=== PATIENT | male | born 1990 | race Caucasian/White ===

== ENCOUNTER 2022-04-14 15:37 | Outpatient (CLI) | payer OTHER | END 2022-04-14 15:38 | disposition critical access hospital (66) | LOC: EMS 15:37 | DX: S81.811A Laceration without foreign body, right lower leg, initial encounter (principal); W27.0XXA Contact with workbench tool, initial encounter; Y93.H9 Activity, other involving exterior property and land maintenance, building and construction; Y92.007 Garden or yard of unspecified non-institutional (private) residence as the place of occurrence of the external cause | CPT/HCPCS: A0425; A0429 ==

== ENCOUNTER 2022-04-14 16:06 | Emergency (ER) | payer OTHER ==
--- NOTE | 2022-04-14 17:08 | XRAY Report ---
PROCEDURE: Tib/Fib RT INDICATIONS: axe injury to bailey TECHNIQUE: 2 views of the tibia and fibula were acquired. COMPARISON: None FINDINGS: Bones: No fractures or dislocations. No suspicious bony lesions. Soft tissues: No suspicious soft tissue calcifications or masses. Soft tissue laceration noted in t he upper thigh IMPRESSION: Soft tissue laceration without fracture or foreign body Reviewed by: Umang Mendez MD on 04/14/2022 4:07 PM [place] Approved by: Umang Mendez MD on 04/14/2022 4:07 PM AKST Station ID: [id number]
[2022-04-14] MEDS ORDERED: IBUPROFEN 600 MG TABLET PO STA (17:16)
--- NOTE | 2022-04-14 17:16 | ED Physician Documentation ---
PD HPI LOWER EXT INJURY - Stated complaint Stated Complaint: RT LEG WOUND - Chief complaint Chief Complaint: Trauma Ext - History obtained from History obtained from: Patient, EMS - History of Present Illness PD HPI LOW EXT INJURY LOCATION: Right, Lower leg (anterior mid lower leg just medial to tibial bone with vertical 7 cm lac to fatty tissue from axe swung to chop a branch on fencing. Axe went through branch easily and the weight of the axe continued downward causing the lac on lower leg.) Type of injury: Laceration Where injury occurred: Home Timing - onset: Today Timing - details: Abrupt onset, Still present Improved by: Dressing (snug dressing led to decreased bleeding.) Associated symptoms: No: Weakness, Numbness Contributing factors: No: Anticoagulated Similar symptoms before: Has not had sx before Recently seen: Not recently seen Review of Systems Constitutional: denies: Fever Nose: denies: Rhinorrhea / runny nose, Congestion Throat: denies: Sore throat Respiratory: denies: Cough Neurologic: denies: Focal weakness, Numbness, Near syncope PD PAST MEDICAL HISTORY - Past Medical History Cardiovascular: None Respiratory: None Musculoskeletal: None PD ED PE NORMAL - Vitals Vital signs reviewed: Yes - General General: Alert and oriented X 3, Well developed/nourished - Derm Derm: Normal color, Warm and dry - Extremities Extremities: Other (right anterior lower leg with 7 cm laceration just medial to mid tibial bone, extending to fatty tissue layer and exposing the muscle without muscle injury. Lac is slightly angled so partial flap. Mild bleeding. No FB. ) - Neuro Neuro: Alert and oriented X 3, No motor deficit (has good motion of foot and ankle for dorsiflexion and eversion without pain in lower leg. ), No sensory deficit, Normal speech Results - Vitals Vitals: Vital Signs - 24 hr 04/14/22 04/14/22 16:22 17:48 Heart Rate 82 78 Respiratory 16 20 Rate Blood Pressure 131/85 H 125/78 O2 Saturation 100 98 Oxygen O2 Source Room air - Rads (name of study) right tib/fib Radiology: Prelim report reviewed (no fractures. no fbs. ), See rad report Procedures - Laceration (location) right lower leg Length in cm: 7 Wound type: Linear, Into subcut fat Neurovascular status: Sensory intact, Motor intact, Vascular intact Anesthesia: Lidocaine 1% with epi Wound preparation: Irrigated copiously NS, Wound explored, To the base Deep layer closure: Vicryl, size #-0 - enter number (4), # sutures - enter number (10) Skin layer closure: Nylon, Running, Size #-0 - enter number (4), Sutures - enter # (27) Other: Patient tolerated well, No complications, Neurovascular intact, Dressing applied, Tetanus UTD PD MEDICAL DECISION MAKING - ED course Complexity details: reviewed results, considered differential, d/w patient Departure - Departure Disposition: 01 Home, Self Care Clinical Impression: Laceration of lower leg Qualifiers: Encounter type: initial encounter Laterality: right Qualified Code(s): S81.811A - Laceration without foreign body, right lower leg, initial encounter Contact with hand tool Qualifiers: Encounter type: initial encounter Qualified Code(s): W27.8XXA - Contact with other nonpowered hand tool, initial encounter Condition: Stable Record reviewed to determine appropriate education?: Yes Instructions: ED Laceration Ext Sutr Stap Tape Follow-Up: ERICH Frye [Provider Group] Comments: It is okay to wash and shower. Clean off the wound twice a day with soap and water, or peroxide and water. Apply some antibiotic ointment to it to keep it moist. Also to watch for signs of infection such as purulence, redness or increasing pain. Return to your primary care or the ER at the specified time for suture removal. Suture removal approximately 10 days. Forms: Activity restrictions Discharge Date/Time: 04/14/22 18:03
[2022-04-14 17:48] VITALS: BP 125/78
== END 2022-04-14 18:03 | disposition home or self-care (01) ==
LOC: ED 16:06
DX: S81.811A Laceration without foreign body, right lower leg, initial encounter (principal); W27.0XXA Contact with workbench tool, initial encounter; Y93.89 Activity, other specified; Y92.009 Unspecified place in unspecified non-institutional (private) residence as the place of occurrence of the external cause
CPT/HCPCS: 12032; 73590; 99283; A9270; 12002

== ENCOUNTER 2023-12-24 12:46 | Emergency (ER) | payer OTHER ==
[2023-12-24 13:22] VITALS: O2SAT 100
[2023-12-24 13:43] LABS: BASOPHILS # (AUTO) 0.1 10^3/uL (0.0-0.1); BASOPHILS % (AUTO) 0.8 %; EOSINOPHILS # (AUTO) 0.2 10^3/uL (0.0-0.7); EOSINOPHILS % (AUTO) 3.2 %; HCT - HEMATOCRIT 43.8 % (42.0-52.0); HGB - HEMOGLOBIN 14.8 g/dL (14.0-18.0); LYMPHOCYTES # (AUTO) 2.1 10^3/uL (1.5-3.5); LYMPHOCYTES % (AUTO) 31.7 %; MEAN CORPUSCULAR HEMOGLOBIN 30.5 pg (27.0-31.0); MEAN CORPUSCULAR HGB CONC 33.8 g/dL (32.0-36.0); MEAN CORPUSCULAR VOLUME 90.3 fL (80.0-94.0); MEAN PLATELET VOLUME 10.6 fL (7.4-11.4); MONOCYTES # (AUTO) 0.8 10^3/uL (0.0-1.0); MONOCYTES % (AUTO) 12.1 %; NEUTROPHILS # (AUTO) 3.4 10^3/uL (1.5-6.6); NEUTROPHILS % (AUTO) 51.9 %; PLT - PLATELET COUNT 245 10^3/uL (130-450); RED BLOOD COUNT 4.85 10^6/uL (4.70-6.10); RED CELL DISTRIBUTION WIDTH 12.1 % (12.0-15.0); WHITE BLOOD COUNT 6.6 x10^3/uL (4.8-10.8)
[2023-12-24 14:02] LABS: ALBUMIN 4.9 g/dL (3.2-5.5); BILIRUBIN,TOTAL 0.6 mg/dL (0.2-1.0); CALCIUM 9.5 mg/dL (8.5-10.3); CREATININE 0.9 mg/dL (0.6-1.3); POTASSIUM 3.6 mmol/L (3.5-4.5); TOTAL PROTEIN 7.3 g/dL (6.4-8.9)
--- NOTE | 2023-12-24 14:45 | ED Physician Documentation ---
History of Present Illness - Stated complaint Stated Complaint: GI - Chief complaint Chief Complaint: Abd Pain - History obtained from History obtained from: Patient - Treatment prior to arrival Treatment prior to arrival: Patient is a 33-year-old male presenting to the emergency department with abdominal pain that has been going on for months he describes it in left upper quadrant and right lower quadrant. He notes symptoms have Been going on for multiple months he was seeing his PCP for similar symptoms however pain has progressively worsened. He is scheduled for a CT scan of his abdomen in [facility] but given severity of his pain he feels he cannot wait. He denies any nausea or vomiting today but notes occasional projectile yellowly bilious vomiting. No hematemesis. He notes intermittent constipation and diarrhea but no blood in his stools. He notes his stools are usually darker though. He denies any dizziness or lightheadedness no chest pain or shortness of breath associated with his symptoms. No history of abdominal surgeries. PD PAST MEDICAL HISTORY - Past Medical History Past Medical History: Yes Cardiovascular: High cholesterol Respiratory: None Psych: ADD/ADHD, Other Musculoskeletal: None - Past Surgical History Past Surgical History: No - Present Medications Home Medications: Ambulatory Orders Medication Instructions Recorded Confirmed Dextroamphetamine/Amphetamine 20 mg PO DAILY 12/24/23 12/24/23 [Adderall 20 mg Tablet] Dicyclomine HCl 20 mg PO DAILY 12/24/23 12/24/23 Ezetimibe [Zetia] 10 mg PO DAILY 12/24/23 12/24/23 Hyoscyamine [Levsin] 0.125 mg SL AC #10 tablet 12/24/23 Sertraline [Zoloft] 75 mg PO DAILY 12/24/23 12/24/23 - Allergies Allergies/Adverse Reactions: Allergies Allergy/AdvReac Type Severity Reaction Status Date / Time No Known Drug Allergies Allergy Verified 12/24/23 13:19 - Social History Does the pt smoke?: No Smoking Status: Never smoker Does the pt drink ETOH?: No Does the pt have substance abuse?: No - Immunizations Immunizations are current?: Yes - POLST Patient has POLST: No Results - Vitals Vitals: Vital Signs - 24 hr 12/24/23 12/24/23 13:09 15:09 Temperature 37.2 C Heart Rate 93 71 Respiratory 19 19 Rate Blood Pressure 131/70 H 117/70 O2 Saturation 100 100 Oxygen O2 Source Room air - Labs Labs: Laboratory Tests 12/24/23 12/24/23 12/24/23 13:39 13:39 14:53 WBC 6.6 RBC 4.85 Hgb 14.8 Hct 43.8 MCV 90.3 MCH 30.5 MCHC 33.8 RDW 12.1 Plt Count 245 MPV 10.6 Neut # (Auto) 3.4 Lymph # (Auto) 2.1 [place] # (Auto) 0.8 Eos # (Auto) 0.2 Baso # (Auto) 0.1 Absolute Nucleated RBC 0.00 Nucleated RBC % 0.0 Sodium 138 Potassium 3.6 Chloride 104 Carbon Dioxide 30 Anion Gap 4.0 L BUN 12 Creatinine 0.9 Estimated GFR (MDRD) 97 Glucose 82 Calcium 9.5 Total Bilirubin 0.6 AST 14 ALT 16 Alkaline Phosphatase 90 Total Protein 7.3 Albumin 4.9 Globulin 2.4 Albumin/Globulin Ratio 2.0 Lipase 29 Urine Color YELLOW Urine Clarity CLEAR Urine pH 8.5 H Ur Specific [place] 1.015 Urine Protein NEGATIVE Urine Glucose (UA) NEGATIVE Urine Ketones NEGATIVE Urine Occult Blood NEGATIVE Urine Nitrite NEGATIVE Urine Bilirubin NEGATIVE Urine Urobilinogen 0.2 (NORMAL) Ur Leukocyte Esterase NEGATIVE Ur Microscopic Review NOT INDICATED Urine Culture Comments NOT INDICATED PD Medical Decision Making - ED course Complexity details: reviewed old records, reviewed results, re-evaluated patient, d/w patient ED course: Patient is a 33-year-old male presented to the emergency department with abdominal pain and left upper quadrant right lower quadrant symptoms have been going on for months progressively worsening patient has a CT scan scheduled in January by his PCP to further evaluate his symptoms but he feels symptoms are too severe. He denies any vomiting today but has been having occasional vomiting intermittent constipation versus diarrhea and abdominal cramping he takes Bentyl at home for his symptoms without relief. Vitals are stable on arri bina physical exam shows reproducible left upper quadrant pain right lower quadrant pain no rebound no Rovsing sign. Active bowel sounds on auscultation of the abdomen. Labs obtained here in the emergency department reassuring lipase is negative CBC shows no leukocytosis and hemoglobin is stable. UA shows no signs of UTI. Discussed with patient reassuring results however he is concerned with his persistent symptoms. CT scan obtained of abdomen for further evaluation showing no acute intra- abdominal findings. Patient updated on reassuring findings he feels he is safe to go home will start patient on Levsin to see if these will help with his symptoms he is already on Bentyl. Discussed with patient symptoms could be secondary to IBS. Discussed with patient return precautions including abdominal pain that worsens fevers nausea vomiting that is uncontrollable dizziness or lightheadedness. He is agreeable with this plan. Departure - Departure Disposition: Home, Self Care Clinical Impression: Abdominal pain, Generalized abdominal cramping, Irritable bowel syndrome Condition: Good Prescriptions: Hyoscyamine [Levsin] 0.125 mg SL AC #10 tablet Comments: You need to follow-up with your PCP in the outpatient setting return to the emergency department with any worsening pain nausea vomiting fevers abdominal cramping or any other new or worsening symptoms. Forms: PCP List
[2023-12-24 15:00] LABS: BILIRUBIN,URINE NEGATIVE (NEGATIVE); GLUCOSE, URINE (UA) NEGATIVE (NEGATIVE); KETONES,URINE (UA) NEGATIVE (NEGATIVE); LEUKOCYTE ESTERASE, URINE NEGATIVE (NEGATIVE); NITRITE,URINE NEGATIVE (NEGATIVE); OCCULT BLOOD,URINE NEGATIVE (NEGATIVE); PH,URINE 8.5 PH (5.0-7.5); PROTEIN,URINE NEGATIVE (NEGATIVE); UROBILINOGEN,URINE 0.2 (NORMAL) E.U./dL (NORMAL)
[2023-12-24 15:04] LABS: CLARITY,URINE CLEAR (CLEAR)
[2023-12-24] MEDS: iohexoL-300 100 ML VIAL IVP ONE (15:14)
--- NOTE | 2023-12-24 15:52 | CT Report ---
PROCEDURE: Abdomen/Pelvis W INDICATIONS: epigastric pain, concern for cholecystitis, vs todd CONTRAST: 100ml [id number]. TECHNIQUE: After the administration of intravenous contrast, a CT scan of the abdomen and pelvis was performed. Images were recorded and evaluated at appropriate window settings. Reformats: coronal and sagittal. F or radiation dose reduction, the following was used: automated exposure control, adjustment of mA and /or kV according to patient size. COMPARISON: None. FINDINGS: Image quality: Diagnostic. Lower chest: Unremarkable. Liver: No solid mass. Gallbladder: No radiopaque stones or wall thickening. Biliary tree: No intrahepatic or extrahepatic dilation, accounting for age. Spleen: No splenomegaly. Pancreas: No pancreatic ductal dilation. Adrenals: No adrenal nodule. Kidneys and ureters: No hydronephrosis. No renal cystic lesion which requires follow up. No solid mas s. Stomach, bowel and peritoneum: No gastric or small bowel dilation. No abnormal wall thickening. No pa thologic free fluid. Normal appendix. Lymph nodes: No central or retroperitoneal adenopathy. Vessels: No infrarenal aortic aneurysm. Patent portal vein. PELVIS Reproductive organs: Unremarkable. Bladder: No abnormal wall thickening, accounting for underdistention. Pelvic lymph nodes: No pelvic adenopathy by size criteria. Bones: No aggressive osseous abnormality. Other: No significant ventral or inguinal hernia. IMPRESSION: Normal CT. No CT evidence of acute cholecystitis or pancreatitis. Reviewed by: Nikolas Kemp MD on 12/24/2023 3:51 PM PDT Approved by: Nikolas Kemp MD on 12/24/2023 3:51 PM PDT Station ID: [id number]
[2023-12-24 17:28] VITALS: BP 116/75
== END 2023-12-24 17:14 | disposition home or self-care (01) ==
LOC: ED 12:46
DX: K58.9 Irritable bowel syndrome, unspecified (principal); E78.00 Pure hypercholesterolemia, unspecified
CPT/HCPCS: 36415; 80053; 81001; 81003; 83690; 85025; 87086; 99283; 99284

== ENCOUNTER 2023-12-30 13:49 | Emergency (ER) | payer OTHER ==
[2023-12-30 14:13] VITALS: O2SAT 100
--- NOTE | 2023-12-30 14:59 | ED Physician Documentation ---
PD HPI SKIN - Stated complaint Stated Complaint: RASH ALL OVER - Chief complaint Chief Complaint: Allergic Rx - History obtained from History obtained from: Patient - Additional information Additional information: The patient comes to the emergency department chief complaint of rash traveling from his bilateral thighs progressively now to his chest and upper back since yesterday. The patient denies any new products or exposure to anything that he can think of that might of caused this. PD PAST MEDICAL HISTORY - Past Medical History Past Medical History: Yes Cardiovascular: High cholesterol Respiratory: None Psych: ADD/ADHD, Other Musculoskeletal: None - Past Surgical History Past Surgical History: No - Present Medications Home Medications: Ambulatory Orders Medication Instructions Recorded Confirmed Dextroamphetamine/Amphetamine 20 mg PO DAILY 12/24/23 12/24/23 [Adderall 20 mg Tablet] Dicyclomine HCl 20 mg PO DAILY 12/24/23 12/24/23 Ezetimibe [Zetia] 10 mg PO DAILY 12/24/23 12/24/23 Hyoscyamine [Levsin] 0.125 mg SL AC #10 tablet 12/24/23 Sertraline [Zoloft] 75 mg PO DAILY 12/24/23 12/24/23 Famotidine [Pepcid] 20 mg PO BID #6 tablet 12/30/23 predniSONE [Deltasone] 60 mg PO DAILY 3 Days #9 tablet 12/30/23 - Allergies Allergies/Adverse Reactions: Allergies Allergy/AdvReac Type Severity Reaction Status Date / Time No Known Drug Allergies Allergy Verified 12/30/23 14:27 - Social History Does the pt smoke?: No Smoking Status: Never smoker Does the pt drink ETOH?: No Does the pt have substance abuse?: No - Immunizations Immunizations are current?: Yes - POLST Patient has POLST: No PD ED PE NORMAL - Vitals Vital signs reviewed: Yes - General General: Alert and oriented X 3, No acute distress, Well developed/nourished - HEENT HEENT: Atraumatic, PERRL, EOMI, Moist mucous membranes - Neck Neck: Supple, no meningeal sign - Cardiac Cardiac: RRR, No murmur - Respiratory Respiratory: No respiratory distress, Clear bilaterally - Abdomen Abdomen: Soft, Non tender, Non distended - Derm Derm: Warm and dry, Other (Urticarial rash involving mainly upper half of the trunk, upper arms, and neck. Coalesced urticaria noted. Some excoriations. Faint remnants of similar rash on bilateral legs.) - Extremities Extremities: No deformity - Neuro Neuro: Alert and oriented X 3 - Psych Psych: Normal mood, Normal affect Results - Vitals Vitals: Oxygen O2 Source Room air PD Medical Decision Making - ED course Complexity details: considered differential, d/w patient ED course: I discussed with the patient that I am not sure what has caused this reaction as the patient does not seem to be able to identify a specific trigger. I have discussed with him the use of Benadryl, steroid, and an H2 [place]. Patient has been given prescriptions as such. We have discussed the usual indications for return and follow-up. Departure - Departure Disposition: 01 Home, Self Care Clinical Impression: Allergic urticaria Condition: Stable Instructions: ED Allergic Reaction General Other Prescriptions: predniSONE [Deltasone] 60 mg PO DAILY 3 Days #9 tablet Famotidine [Pepcid] 20 mg PO BID #6 tablet Comments: Your rash appears to be an allergic reaction, though the source of this is unclear as rashes from allergic reactions all look the same, regardless of what you were exposed to. It is possible that you have become sensitized to something you were previously not allergic to, or it is possible you got exposed to something without realizing it. In general, allergic reactions go away on their own in 3 to 5 days, and most of the time, treatment is to help hasten the improvement of symptoms, but ultimately, your immune system has to calm down on its own for the reaction to go away completely. I sent a prescription for oral steroid and Pepcid to the [facility] pharmacy in [place] for your reaction. Forms: PCP List Discharge Date/Time: 12/30/23 15:19
[2023-12-30] MEDS: predniSONE 20 MG TABLET PO STA (15:09)
[2023-12-30 15:15] VITALS: BP 131/75
== END 2023-12-30 15:19 | disposition home or self-care (01) ==
LOC: ED 13:49
DX: E78.00 Pure hypercholesterolemia, unspecified (principal); L50.0 Allergic urticaria
CPT/HCPCS: 99283; J7512

== ENCOUNTER 2024-01-01 20:28 | Emergency (ER) | payer OTHER ==
[2024-01-01 21:39] LABS: BASOPHILS % (AUTO) 0.2 %; HCT - HEMATOCRIT 45.6 % (42.0-52.0); HGB - HEMOGLOBIN 15.1 g/dL (14.0-18.0); LYMPHOCYTES # (AUTO) 0.6 10^3/uL (1.5-3.5); LYMPHOCYTES % (AUTO) 5.9 %; MEAN CORPUSCULAR HEMOGLOBIN 30.1 pg (27.0-31.0); MEAN CORPUSCULAR HGB CONC 33.1 g/dL (32.0-36.0); MEAN CORPUSCULAR VOLUME 90.8 fL (80.0-94.0); MEAN PLATELET VOLUME 10.6 fL (7.4-11.4); MONOCYTES # (AUTO) 0.3 10^3/uL (0.0-1.0); MONOCYTES % (AUTO) 3.3 %; NEUTROPHILS # (AUTO) 8.5 10^3/uL (1.5-6.6); NEUTROPHILS % (AUTO) 90.2 %; PLT - PLATELET COUNT 275 10^3/uL (130-450); RED BLOOD COUNT 5.02 10^6/uL (4.70-6.10); RED CELL DISTRIBUTION WIDTH 12.6 % (12.0-15.0); WHITE BLOOD COUNT 9.5 x10^3/uL (4.8-10.8)
--- NOTE | 2024-01-01 21:39 | ED Physician Documentation ---
History of Present Illness - Stated complaint Stated Complaint: GI/HIVES - Chief complaint Chief Complaint: General - History obtained from History obtained from: Patient, Family () - Additonal information Additional information: 33-year-old man with history of ADHD, autism, depression, IBS, anxiety, presents with suicidal ideation for the past couple of days, worsening in severity and associated with self-injurious behavior. Patient has been complaining of rash for the past several days is scratching himself excessively per . He also states that he is having pervasive thoughts of killing himself and has a plan to do so but did not disclose what it was. Denies HI. Does endorse audio hallucinations (hearing his when she is not actually speaking). Denies visual hallucinations. PD PAST MEDICAL HISTORY - Past Medical History Past Medical History: Yes Cardiovascular: High cholesterol Respiratory: None Neuro: None Endocrine/Autoimmune: None GI: None : None HEENT: None Psych: ADD/ADHD, Other Musculoskeletal: None Derm: None - Past Surgical History Past Surgical History: No - Present Medications Home Medications: Ambulatory Orders Medication Instructions Recorded Confirmed Dextroamphetamine/Amphetamine 20 mg PO DAILY 12/24/23 01/01/24 [Adderall 20 mg Tablet] Dicyclomine HCl 20 mg PO DAILY 12/24/23 12/24/23 Ezetimibe [Zetia] 10 mg PO DAILY 12/24/23 01/01/24 Hyoscyamine [Levsin] 0.125 mg SL AC #10 tablet 12/24/23 Sertraline [Zoloft] 75 mg PO DAILY 12/24/23 01/01/24 Famotidine [Pepcid] 20 mg PO BID #6 tablet 12/30/23 01/01/24 predniSONE [Deltasone] 60 mg PO DAILY 3 Days #9 tablet 12/30/23 01/01/24 - Allergies Allergies/Adverse Reactions: Allergies Allergy/AdvReac Type Severity Reaction Status Date / Time No Known Drug Allergies Allergy Verified 01/01/24 21:25 - Social History Does the pt smoke?: No Smoking Status: Never smoker Does the pt drink ETOH?: No Does the pt have substance abuse?: No - Immunizations Immunizations are current?: Yes - POLST Patient has POLST: No PD ED PE NORMAL - Vitals Vital signs reviewed: Yes - General General: Alert and oriented X 3, No acute distress, Well developed/nourished, Other (Anxious appearing) - HEENT HEENT: Atraumatic, PERRL, EOMI, Moist mucous membranes, Pharynx benign - Neck Neck: Supple, no meningeal sign - Cardiac Cardiac: RRR - Respiratory Respiratory: No respiratory distress, Clear bilaterally - Abdomen Abdomen: Non tender, Non distended - Derm Derm: Normal color, Warm and dry, Other (No visible rash. Patient does have excoriations along trunk, back and bilateral thighs. He also has ecchymosis to thighs along areas of excoriation.) Results - Vitals Vitals: Vital Signs - 24 hr 01/01/24 20:29 Temperature 36.3 C L Heart Rate 105 H Respiratory 16 Rate Blood Pressure 145/80 H O2 Saturation 100 Oxygen O2 Source Room air - EKG (time done) 2128 EKG releavant findings:: EKG personally interpreted by author of this note. Relevant findings are: Rate: Rate (enter#) (74) Rhythm: NSR [place]: Normal Intervals: Normal [place] QRS: Normal Ischemia: Normal ST segments - Labs Labs: Laboratory Tests 01/01/24 01/01/24 01/01/24 21:28 21:33 21:33 WBC 9.5 RBC 5.02 Hgb 15.1 Hct 45.6 MCV 90.8 MCH 30.1 MCHC 33.1 RDW 12.6 Plt Count 275 MPV 10.6 Neut # (Auto) 8.5 H Lymph # (Auto) 0.6 L [place] # (Auto) 0.3 Eos # (Auto) 0.0 Baso # (Auto) 0.0 Absolute Nucleated RBC 0.00 Nucleated RBC % 0.0 Sodium 136 Potassium 4.0 Chloride 103 Carbon Dioxide 24 Anion Gap 9.0 BUN 11 Creatinine 0.9 Estimated GFR (MDRD) 97 Glucose 106 H Calcium 9.6 Magnesium 2.1 Total Bilirubin 0.7 AST 20 ALT 25 Alkaline Phosphatase 88 Total Creatine Kinase 222 Total Protein 7.7 Albumin 5.2 Globulin 2.5 Albumin/Globulin Ratio 2.1 Lipase 16 TSH 0.44 Urine Color YELLOW Urine Clarity CLEAR Urine pH 7.0 Ur Specific [place] 1.020 Urine Protein NEGATIVE Urine Glucose (UA) NEGATIVE Urine Ketones NEGATIVE Urine Occult Blood NEGATIVE Urine Nitrite NEGATIVE Urine Bilirubin NEGATIVE Urine Urobilinogen 0.2 (NORMAL) Ur Leukocyte Esterase NEGATIVE Ur Microscopic Review NOT INDICATED Urine Culture Comments NOT INDICATED Salicylates < 1.5 Urine Opiates Screen NEGATIVE Ur Buprenorphine Scrn NEGATIVE Ur Oxycodone Screen NEGATIVE Urine Methadone Screen NEGATIVE Acetaminophen 0.3 Ur Barbiturates Screen NEGATIVE Ur Tricyclics Screen NEGATIVE Ur Phencyclidine Scrn NEGATIVE Ur Amphetamine Screen POSITIVE H U Methamphetamines Scrn NEGATIVE U Benzodiazepines Scrn NEGATIVE Urine Cocaine Screen NEGATIVE U Cannabinoids Screen POSITIVE H Ur Drug Screen Comment CUTOFF CONC BELOW: Ethyl Alcohol < 10.0 PD Medical Decision Making - ED course ED course: 33-year-old man presents with suicidal ideation for the past few days, worsening in severity with some audio hallucinations. Alongside this or some physical symptoms of bloating sensation, as well as concerns that he has a rash. states he has had ectopic dermatitis in the past when he is under a lot of stress and attributes it to that. They are requesting psychological evaluation. 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 d/w Dr. Mitchell, accepting psychiatrist at [facility]. Departure - Departure Disposition: 65 Psych Hosp/Unit DC/Xfer Clinical Impression: Depression, Suicidal ideation Condition: Stable Forms: PCP List
[2024-01-01 21:40] LABS: BILIRUBIN,URINE NEGATIVE (NEGATIVE); GLUCOSE, URINE (UA) NEGATIVE (NEGATIVE); KETONES,URINE (UA) NEGATIVE (NEGATIVE); LEUKOCYTE ESTERASE, URINE NEGATIVE (NEGATIVE); NITRITE,URINE NEGATIVE (NEGATIVE); OCCULT BLOOD,URINE NEGATIVE (NEGATIVE); PROTEIN,URINE NEGATIVE (NEGATIVE); UROBILINOGEN,URINE 0.2 (NORMAL) E.U./dL (NORMAL)
[2024-01-01 21:47] LABS: CLARITY,URINE CLEAR (CLEAR)
[2024-01-01 21:50] LABS: AMPHETAMINE SCREEN,URINE POSITIVE (NEGATIVE); BARBITURATE SCREEN,UR NEGATIVE (NEGATIVE); BENZODIAZEPINES SCREEN, URINE NEGATIVE (NEGATIVE); BUPRENORPHINE SCREEN, URINE NEGATIVE (NEGATIVE); COCAINE SCREEN URINE NEGATIVE (NEGATIVE); METHADONE SCREEN, URINE NEGATIVE (NEGATIVE); METHAMPHETAMINES SCREEN, URINE NEGATIVE (NEGATIVE); OPIATE SCREEN, URINE NEGATIVE (NEGATIVE); OXYCODONE SCREEN, URINE NEGATIVE (NEGATIVE); THC CANNABINOID SCREEN, URINE POSITIVE (NEGATIVE); TRICYCLIC ANTIDEPRESSANT,URINE NEGATIVE (NEGATIVE)
[2024-01-01 22:16] LABS: THYROID STIMULATING HORMONE 0.44 uIU/mL (0.34-5.60)
[2024-01-01 22:24] LABS: ACETAMINOPHEN 0.3 ug/mL; ALBUMIN 5.2 g/dL (3.2-5.5); ALBUMIN/GLOBULIN RATIO 2.1 (1.0-2.2); ALKALINE PHOSPHATASE 88 IU/L (42-121); ALT ALANINE AMINOTRANSFERASE 25 IU/L (10-60); AST ASPARTATE AMINOTRANSFERASE 20 IU/L (10-42); BILIRUBIN,TOTAL 0.7 mg/dL (0.2-1.0); BUN - BLOOD UREA NITROGEN 11 mg/dL (6-20); CALCIUM 9.6 mg/dL (8.5-10.3); CARBON DIOXIDE - CO2 24 mmol/L (21-32); CHLORIDE 103 mmol/L (101-111); CK- CREATINE KINASE 222 IU/L (30-223); CREATININE 0.9 mg/dL (0.6-1.3); ETOH - ETHANOL < 10.0 mg/dL; GFR - MDRD 97 (>89); GLUCOSE 106 mg/dL (74-104); LIPASE 16 U/L (11-82); MAGNESIUM 2.1 mg/dL (1.7-2.3); SODIUM 136 mmol/L (135-145); TOTAL PROTEIN 7.7 g/dL (6.4-8.9)
[2024-01-01 22:26] LABS: SALICYLATE < 1.5 mg/dL
[2024-01-01] MEDS ORDERED: CALAMINE/ZINC OXIDE 177 ML BOTTLE TOP STA (23:05)
[2024-01-02] MEDS ORDERED: diphenhydrAMINE 25 MG CAPSULE PO ONE (02:00)
[2024-01-02 05:33] VITALS: BP 120/69; O2SAT 99
== END 2024-01-02 02:10 ==
LOC: ED 20:28
DX: F32.A Depression, unspecified (principal); R45.851 Suicidal ideations; F90.9 Attention-deficit hyperactivity disorder, unspecified type; F84.0 Autistic disorder; K58.9 Irritable bowel syndrome, unspecified
CPT/HCPCS: 36415; 80053; 80143; 80179; 80306; 81003; 82077; 82550; 83690; 83735; 84443; 85025; 93005; 99284; 99285; A9270; 81001; 87086

== ENCOUNTER 2024-02-18 19:04 | Emergency (ER) | payer OTHER ==
--- NOTE | 2024-02-18 19:19 | ED Physician Documentation ---
PD HPI MHE - Stated complaint Stated Complaint: MHE - Chief complaint Chief Complaint: MHE - History obtained from History obtained from: Patient, EMS - History of Present Illness Primary symptom: Suicide attempt Pain level max: 0 Pain level now: 0 - Additional information Additional information: Patient is a 33-year-old male brought in by EMS for suicide attempt x 2 today. He states that he tied a noose and a rope, slipped over his head, padded around a beam in the back of his shed and leaned forward. He did not lose consciousness. Did not fall. He states on the second attempt he lengthened to the rope. [place] then [place] they pulled him [place]. The police then called EMS who brought him to the emergency department. They did not place him on an STEPHANIE hold. 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 He states he has had suicide attempt several years ago. Has been out of his medications for about a month. [place] recently. He still feels suicidal. He is requesting to go to [facility] for voluntary treatment. Review of Systems Constitutional: denies: Fever, Chills Cardiac: denies: Chest pain / pressure Respiratory: denies: Cough GI: denies: Nausea, Vomiting, Diarrhea Skin: denies: Rash Musculoskeletal: denies: Neck pain, Back pain Neurologic: denies: Headache, Head injury PD PAST MEDICAL HISTORY - Past Medical History Past Medical History: Yes Cardiovascular: High cholesterol Respiratory: None Neuro: None Endocrine/Autoimmune: None GI: None : None HEENT: None Psych: Depression, Anxiety, ADD/ADHD, Other Musculoskeletal: None Derm: None - Past Surgical History Past Surgical History: No - Present Medications Home Medications: Ambulatory Orders Medication Instructions Recorded Confirmed Dextroamphetamine/Amphetamine 20 mg PO DAILY 12/24/23 01/01/24 [Adderall 20 mg Tablet] Dicyclomine HCl 20 mg PO DAILY 12/24/23 12/24/23 Ezetimibe [Zetia] 10 mg PO DAILY 12/24/23 01/01/24 Hyoscyamine [Levsin] 0.125 mg SL AC #10 tablet 12/24/23 Sertraline [Zoloft] 75 mg PO DAILY 12/24/23 01/01/24 Famotidine [Pepcid] 20 mg PO BID #6 tablet 12/30/23 01/01/24 predniSONE [Deltasone] 60 mg PO DAILY 3 Days #9 tablet 12/30/23 01/01/24 - Allergies Allergies/Adverse Reactions: Allergies Allergy/AdvReac Type Severity Reaction Status Date / Time Iodinated Contrast Media Allergy Hives Verified 02/18/24 19:11 - Social History Does the pt smoke?: No Smoking Status: Never smoker Does the pt drink ETOH?: No Does the pt have substance abuse?: No - Immunizations Immunizations are current?: Yes - POLST Patient has POLST: No PD ED PE NORMAL - Vitals Vital signs reviewed: Yes - General General: Alert and oriented X 3, No acute distress - HEENT HEENT: Atraumatic, PERRL, Moist mucous membranes - Neck Neck: Supple, no meningeal sign, No bony TTP, No JVD, No bruit, Other (No abrasions to the neck. No rug delgadillo or white) - Cardiac Cardiac: RRR, No murmur - Respiratory Respiratory: No respiratory distress, Clear bilaterally - Abdomen Abdomen: Soft, Non tender, Non distended - Derm Derm: Warm and dry - Extremities Extremities: No edema, No calf tenderness / cord - Neuro Neuro: Alert and oriented X 3, technical spec 2-12 intact, No motor deficit, No sensory deficit, Normal speech Eye Opening: Spontaneous Motor: Obeys Commands Verbal: Oriented GCS Score: 15 - Psych Psych: Normal mood, Normal affect Results - Vitals Vitals: Vital Signs - 24 hr 02/18/24 19:11 Temperature 37.2 C Heart Rate 79 Respiratory 16 Rate Blood Pressure 130/79 O2 Saturation 96 Oxygen O2 Source Room air - Labs Labs: Laboratory Tests 02/18/24 02/18/24 02/18/24 19:22 19:22 19:24 WBC 9.2 RBC 4.80 Hgb 14.7 Hct 44.1 MCV 91.9 MCH 30.6 MCHC 33.3 RDW 12.5 Plt Count 275 MPV 10.2 Neut # (Auto) 5.7 Lymph # (Auto) 2.5 [place] # (Auto) 0.7 Eos # (Auto) 0.2 Baso # (Auto) 0.1 Absolute Nucleated RBC 0.00 Nucleated RBC % 0.0 Sodium 138 Potassium 3.4 L Chloride 101 Carbon Dioxide 29 Anion Gap 8.0 BUN 12 Creatinine 0.9 Estimated GFR (MDRD) 97 Glucose 95 Calcium 9.7 Magnesium 1.7 Total Bilirubin 0.9 AST 21 ALT 36 Alkaline Phosphatase 86 Total Protein 7.2 Albumin 4.9 Globulin 2.3 Albumin/Globulin Ratio 2.1 Lipase 16 TSH 2.33 Urine Color YELLOW Urine Clarity HAZY Urine pH 6.5 Ur Specific [place] 1.025 Urine Protein NEGATIVE Urine Glucose (UA) NEGATIVE Urine Ketones NEGATIVE Urine Occult Blood NEGATIVE Urine Nitrite NEGATIVE Urine Bilirubin NEGATIVE Urine Urobilinogen 1 (NORMAL) Ur Leukocyte Esterase NEGATIVE Urine RBC None Seen Urine WBC 0-3 Ur Squamous Epith Cells NONE SEEN Amorphous Sediment Moderate Urine Bacteria None Seen Ur Microscopic Review INDICATED Urine Culture Comments NOT INDICATED Salicylates < 1.5 Urine Opiates Screen NEGATIVE Ur Buprenorphine Scrn NEGATIVE Ur Oxycodone Screen NEGATIVE Urine Methadone Screen NEGATIVE Acetaminophen 0.2 Ur Barbiturates Screen NEGATIVE Ur Tricyclics Screen NEGATIVE Ur Phencyclidine Scrn NEGATIVE Ur Amphetamine Screen NEGATIVE U Methamphetamines Scrn NEGATIVE U Benzodiazepines Scrn NEGATIVE Urine Cocaine Screen NEGATIVE U Cannabinoids Screen POSITIVE H Ur Drug Screen Comment CUTOFF CONC BELOW: Ethyl Alcohol < 10.0 SARS-CoV-2 (PCR) 02/18/24 19:30 WBC RBC Hgb Hct MCV MCH MCHC RDW Plt Count MPV Neut # (Auto) Lymph # (Auto) [place] # (Auto) Eos # (Auto) Baso # (Auto) Absolute Nucleated RBC Nucleated RBC % Sodium Potassium Chloride Carbon Dioxide Anion Gap BUN Creatinine Estimated GFR (MDRD) Glucose Calcium Magnesium Total Bilirubin AST ALT Alkaline Phosphatase Total Protein Albumin Globulin Albumin/Globulin Ratio Lipase TSH Urine Color Urine Clarity Urine pH Ur Specific [place] Urine Protein Urine Glucose (UA) Urine Ketones Urine Occult Blood Urine Nitrite Urine Bilirubin Urine Urobilinogen Ur Leukocyte Esterase Urine RBC Urine WBC Ur Squamous Epith Cells Amorphous Sediment Urine Bacteria Ur Microscopic Review Urine Culture Comments Salicylates Urine Opiates Screen Ur Buprenorphine Scrn Ur Oxycodone Screen Urine Methadone Screen Acetaminophen Ur Barbiturates Screen Ur Tricyclics Screen Ur Phencyclidine Scrn Ur Amphetamine Screen U Methamphetamines Scrn U Benzodiazepines Scrn Urine Cocaine Screen U Cannabinoids Screen Ur Drug Screen Comment Ethyl Alcohol SARS-CoV-2 (PCR) NOT DETECTED PD Medical Decision Making - ED course Complexity details: reviewed results, re-evaluated patient, considered differential, d/w patient, d/w showroom consultant ED course: Patient is medically clear for psychiatric care. Will contact [facility] to see if there is a bed available. Discussed the case with Dr. Etienne, psychiatrist at [facility]. Graciously accepts in transfer. No indication for CT angiogram of the neck, patient did not actually hang himself, he did lean into the rope, with there are no abrasions. He did not fall to the ground. Did not strangle himself. COBRA forms completed. This document was made in part using voice recognition software. While efforts are made to proofread this document, sound alike and grammatical errors may occur. Departure - Departure Disposition: 65 Psych Hosp/Unit DC/Xfer Clinical Impression: Suicidal ideation, Suicide attempt Condition: Stable Forms: PCP List
[2024-02-18 19:22] VITALS: BP 130/79; O2SAT 96
[2024-02-18 19:27] LABS: BASOPHILS # (AUTO) 0.1 10^3/uL (0.0-0.1); BASOPHILS % (AUTO) 0.8 %; EOSINOPHILS # (AUTO) 0.2 10^3/uL (0.0-0.7); EOSINOPHILS % (AUTO) 1.6 %; HCT - HEMATOCRIT 44.1 % (42.0-52.0); HGB - HEMOGLOBIN 14.7 g/dL (14.0-18.0); LYMPHOCYTES # (AUTO) 2.5 10^3/uL (1.5-3.5); LYMPHOCYTES % (AUTO) 27.4 %; MEAN CORPUSCULAR HEMOGLOBIN 30.6 pg (27.0-31.0); MEAN CORPUSCULAR HGB CONC 33.3 g/dL (32.0-36.0); MEAN CORPUSCULAR VOLUME 91.9 fL (80.0-94.0); MEAN PLATELET VOLUME 10.2 fL (7.4-11.4); MONOCYTES # (AUTO) 0.7 10^3/uL (0.0-1.0); MONOCYTES % (AUTO) 7.7 %; NEUTROPHILS # (AUTO) 5.7 10^3/uL (1.5-6.6); NEUTROPHILS % (AUTO) 62.2 %; PLT - PLATELET COUNT 275 10^3/uL (130-450); RED CELL DISTRIBUTION WIDTH 12.5 % (12.0-15.0); WHITE BLOOD COUNT 9.2 x10^3/uL (4.8-10.8)
[2024-02-18 19:55] LABS: THYROID STIMULATING HORMONE 2.33 uIU/mL (0.34-5.60)
[2024-02-18 19:59] LABS: BILIRUBIN,URINE NEGATIVE (NEGATIVE); CLARITY,URINE HAZY (CLEAR); GLUCOSE, URINE (UA) NEGATIVE (NEGATIVE); KETONES,URINE (UA) NEGATIVE (NEGATIVE); LEUKOCYTE ESTERASE, URINE NEGATIVE (NEGATIVE); NITRITE,URINE NEGATIVE (NEGATIVE); OCCULT BLOOD,URINE NEGATIVE (NEGATIVE); PH,URINE 6.5 PH (5.0-7.5); PROTEIN,URINE NEGATIVE (NEGATIVE); UROBILINOGEN,URINE 1 (NORMAL) E.U./dL (NORMAL)
[2024-02-18 20:01] LABS: ACETAMINOPHEN 0.2 ug/mL; ALBUMIN 4.9 g/dL (3.2-5.5); ALBUMIN/GLOBULIN RATIO 2.1 (1.0-2.2); ALKALINE PHOSPHATASE 86 IU/L (42-121); ALT ALANINE AMINOTRANSFERASE 36 IU/L (10-60); AST ASPARTATE AMINOTRANSFERASE 21 IU/L (10-42); BILIRUBIN,TOTAL 0.9 mg/dL (0.2-1.0); BUN - BLOOD UREA NITROGEN 12 mg/dL (6-20); CALCIUM 9.7 mg/dL (8.5-10.3); CARBON DIOXIDE - CO2 29 mmol/L (21-32); CHLORIDE 101 mmol/L (101-111); CREATININE 0.9 mg/dL (0.6-1.3); ETOH - ETHANOL < 10.0 mg/dL; GFR - MDRD 97 (>89); GLUCOSE 95 mg/dL (74-104); LIPASE 16 U/L (11-82); MAGNESIUM 1.7 mg/dL (1.7-2.3); POTASSIUM 3.4 mmol/L (3.5-4.5); SALICYLATE < 1.5 mg/dL; SODIUM 138 mmol/L (135-145); TOTAL PROTEIN 7.2 g/dL (6.4-8.9)
[2024-02-18 20:12] LABS: AMORPHOUS SEDIMENT,UR Moderate /LPF; BACTERIA,URINE None Seen /HPF (None Seen); RBC,URINE None Seen /HPF (0-5); SQUAMOUS EPITHELIAL CELL,UR NONE SEEN (<= Few); WBC,URINE 0-3 /HPF (0-3)
[2024-02-18 20:22] LABS: AMPHETAMINE SCREEN,URINE NEGATIVE (NEGATIVE); BARBITURATE SCREEN,UR NEGATIVE (NEGATIVE); BENZODIAZEPINES SCREEN, URINE NEGATIVE (NEGATIVE); BUPRENORPHINE SCREEN, URINE NEGATIVE (NEGATIVE); COCAINE SCREEN URINE NEGATIVE (NEGATIVE); METHADONE SCREEN, URINE NEGATIVE (NEGATIVE); METHAMPHETAMINES SCREEN, URINE NEGATIVE (NEGATIVE); OPIATE SCREEN, URINE NEGATIVE (NEGATIVE); OXYCODONE SCREEN, URINE NEGATIVE (NEGATIVE); THC CANNABINOID SCREEN, URINE POSITIVE (NEGATIVE); TRICYCLIC ANTIDEPRESSANT,URINE NEGATIVE (NEGATIVE)
== END 2024-02-19 00:09 ==
LOC: EDUNIT# → ED 19:04
DX: T14.91XA Suicide attempt, initial encounter (principal); X83.8XXA Intentional self-harm by other specified means, initial encounter; E78.00 Pure hypercholesterolemia, unspecified; Z79.899 Other long term (current) drug therapy
CPT/HCPCS: 36415; 80053; 80143; 80179; 80306; 81001; 81003; 82077; 83690; 83735; 84443; 85025; 87086; 87635; 99284; 99285